=== PATIENT | male | born 1990 | race Caucasian/White ===

== ENCOUNTER 2021-01-29 12:30 | Inpatient (IN) | payer OTHER ==
[~2021-01-29] VITALS: Ht 182.9 cm; Wt 80.6 kg
[2021-01-29 14:10] LABS: HEMATOCRIT 41.1 % (42.0-52.0); MEAN CORPUSCULAR HEMOGLOBIN 31.6 pg (27.0-33.0); MEAN CORPUSCULAR HGB CONC 34.1 g/dl (32.0-36.5); MEAN CORPUSCULAR VOLUME 92.8 fl (80.0-96.0); PLATELET COUNT, AUTOMATED 182 10^3/uL (150-450); RED BLOOD COUNT 4.43 10^6/uL (4.30-6.10); WHITE BLOOD COUNT 3.9 10^3/uL (4.0-10.0)
[2021-01-29 14:28] LABS: AMPHETAMINES LEVEL URINE NEGATIVE (NEGATIVE); BARBITURATES URINE NEGATIVE (NEGATIVE); BENZODIAZEPINES URINE NEGATIVE (NEGATIVE); CANNABINOIDS URINE NEGATIVE (NEGATIVE); COCAINE METABOLITE URINE NEGATIVE (NEGATIVE); METHADONE URINE NEGATIVE (NEGATIVE); OPIATES URINE NEGATIVE (NEGATIVE); PHENCYCLIDINE URINE NEGATIVE (NEGATIVE)
[2021-01-29 14:43] LABS: ACETAMINOPHEN LEVEL < 2.0 UG/ML (10.0-30.0); ALBUMIN 3.7 GM/DL (3.2-5.2); ALT/SGPT 43 U/L (12-78); BILIRUBIN,DIRECT 0.1 MG/DL (0.0-0.2); BILIRUBIN,TOTAL 0.3 MG/DL (0.2-1.0); BLOOD UREA NITROGEN 19 MG/DL (7-18); CALCIUM LEVEL 9.1 MG/DL (8.5-10.1); CARBON DIOXIDE LEVEL 30 MEQ/L (21-32); CHLORIDE LEVEL 106 MEQ/L (98-107); CREATININE FOR GFR 1.11 MG/DL (0.70-1.30); ETHYL ALCOHOL (ETHANOL) < 0.003 % (0.000-0.010); GLOMERULAR FILTRATION RATE > 60.0 (>60); GLUCOSE, FASTING 80 MG/DL (70-100); POTASSIUM SERUM 4.4 MEQ/L (3.5-5.1); SALICYLATE LEVEL < 1.7 MG/DL (5.0-30.0); SODIUM LEVEL 139 MEQ/L (136-145); TOTAL PROTEIN 6.7 GM/DL (6.4-8.2)
--- NOTE | 2021-01-29 16:24 | MHIPNPDOC ---
[facility] Progress Note Progress Note DATE OF SERVICE: 01/29/21 Communicated to PSA patient needs admission. 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 Vital Signs Vital Signs Date Time Temp Pulse Resp B/P (MAP) Pulse Ox O2 Delivery O2 Flow Rate FiO2 01/29/21 12:30 98.7 54 18 131/66 (87) 100 Room Air Laboratory Data 24H Labs Laboratory Tests 2 01/29/21 13:48: Nucleated Red Blood Cells % (auto) 0.0, Anion Gap 3L, Glomerular Filtration Rate > 60.0, Calcium Level 9.1, Total Bilirubin 0.3, Direct Bilirubin 0.1, Aspartate Amino Transf (AST/SGOT) 25, Alanine Aminotransferase (ALT/SGPT) 43, Alkaline Phosphatase 53, Total Protein 6.7, Albumin 3.7, Albumin/Globulin Ratio 1.2, Thyroid Stimulating Hormone (TSH) 1.180, Salicylates Level < 1.7L, Urine Opiates Screen NEGATIVE, Urine Methadone Screen NEGATIVE, Acetaminophen Level < 2.0L, Urine Barbiturates Screen NEGATIVE, Urine Phencyclidine Screen NEGATIVE, Urine Amphetamines Screen NEGATIVE, Urine Benzodiazepines Screen NEGATIVE, Urine Cocaine Metabolite Screen NEGATIVE, Urine Cannabinoids Screen NEGATIVE, Ethyl Alcohol Level < 0.003 CBC/BMP Laboratory Tests 01/29/21 13:48 Allergies Coded Allergies: No Known Drug Allergies (Verified Allergy, Unknown, 01/29/21) VALERIANO ARIAS MD Jan 29, 2021 16:24
--- NOTE | 2021-01-29 19:07 | ECGEPIP ---
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
[2021-01-29] MEDS ORDERED: RA M10TA PO (21:27)
[2021-01-29] MEDS ORDERED: BANO25TA PO (21:27)
[2021-01-29] MEDS ORDERED: HOME MED LIST COMPLETE! XX SCH (21:30)
[2021-01-30 13:52] LABS: RSV AMPLIFICATION NEGATIVE (NEGATIVE)
[2021-01-30] MEDS ORDERED: ACETAMINOPHEN TAB 650MG DOSE (2X325MG) PO PRN (14:20)
[2021-01-30] MEDS ORDERED: traZODone 50 MG TAB PO PRN (14:20)
[2021-01-30] MEDS ORDERED: MOM 30ML SUSPENSION UDC PO PRN (14:20)
[2021-01-30] MEDS ORDERED: MAALOX 30 ML SUSP *UDC PO PRN (14:20)
[2021-01-30 15:39] VITALS: BP 121/72
[2021-01-31 06:41] VITALS: BP_SYST 120; BP_SYST 140; BP_DIAS 58; BP_DIAS 78
--- NOTE | 2021-01-31 12:53 | MHHPE ---
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 HISTORY OF PRESENT ILLNESS: Patient came by himself, he was directed by his brother, whom he texted that he had suicidal thoughts. Told his brother that he felt like buying a gun and shooting himself in a lonely place. Patient reports he has a long history of mental illness with considerable mood swings. His depression goes back since many years. However, it has been worsening for the last four to five months. Periodically, he has had suicidal thoughts. His mood swings have brought marital discord. His wants to go to [place], where they belong. Reports he currently feels hopeless, helpless. He has decreased sleep, poor energy. He also has racing thoughts, increased energy, goes on spending sprees, decreased need for sleep, which can last up to 3-4 days. Patient also has a history of anxiety. His current episode is mainly depression. His stressors are work related as well as relationship problems with his . PAST PSYCHIATRIC HISTORY: He has never seen a psychiatrist before, has never been on any medications. However, he was seeing a therapist two weeks ago. Patient had suicidal ideas when he was 16 or 17 years old; however, never acted on it. MEDICAL HISTORY: Denies medical problems. DRUG/ALCOHOL HISTORY: Patient currently is not using alcohol or any illicit drugs. However, in the past, before age 20, he has used opioids, cannabis, cocaine, methamphetamine. FAMILY PSYCHIATRIC HISTORY: His aunt, his cousin and probably his mother also have bipolar disorder. PERSONAL HISTORY: He was raised by his mother and father periodically from 4 years to 13 years, then he lived with his mother. He has one brother and one half-sister. He completed high school graduation. He has been in the [employer] for 4-1/2 years. He was deployed to [place]. MENTAL STATUS EXAMINATION: Thin build, average height. Appears stated age. Cooperative. Made good eye contact. Mood is depressed. Affect is blunted. Groomed well in hospital dress. Speech: Rate, rhythm and volume are good. Thought process: Linear and goal-directed. Thought content: Has had suicidal ideas, but denies any suicidal plans now. Denies any homicidal thoughts. Oriented to time, place and person. Memory: Immediate, remote and recent are good. Impulse control is adequate. VITAL SIGNS: Temperature 97.8, pulse 60, respiratory rate 18, blood pressure 120/58, pulse oximetry 97%. REVIEW OF SYSTEMS: CONSTITUTIONAL: Denies any night sweats, fever or weight loss. HEENT: Negative for epistaxis, headache, hearing loss. RESPIRATORY: No cough or shortness of breath. No wheezing. CARDIOVASCULAR: Negative for chest pain or dyspnea. GASTROINTESTINAL: No abdominal pain. No change in bowel habits. GENITOURIARY: No dysuria. No trouble voiding. No hematuria. NEUROLGOCIAL: No gait disturbances. No numbness or tingling. MUSCULOSKELETAL: No joint pain. DIAGNOSES: 1. Bipolar disorder, unspecified. 2. Rule out bipolar 2 disorder. 3. Anxiety disorder, not otherwise specified. ASSESSMENT: This is his first psychiatric hospitalization; however, has been having mood swings for a long time. He has not been treated for his symptoms. His symptoms are consistent with bipolar disorder, with depressive as well as manic symptoms. TREATMENT RECOMMENDATIONS: 1. Patient will be admitted to inpatient mental health unit (IMHU). 2. Patient will be followed by computational scientist for medical needs. 3. Patient will be followed by director of social services and case management. 4. Patient will be placed on suicide precautions, 15 minutes check. 5. Patient will participate in appropriate activities, including group, individual and milieu therapies. 6. Patient will be placed on Depakote ER 500 mg at night and Remeron 15 mg at night, titrate the dose. 7. Will check valproic acid level after five days. ESTIMATED LENGTH OF STAY: 5-6 days. TIME SPENT: 45 minutes. MTDD
--- NOTE | 2021-01-31 15:58 | HPEPDOC ---
General Date of Admission Jan 30, 2021 at 14:17 Date of Service: Jan 31, 2021 Chief Complaint The patient is a 30-year-old male admitted with a reason for visit of Unspecified Depressive Do. 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 He is being examined here for medical history and physical. He denied any complaints today. Home Medications Scheduled Diphenhydramine HCl (Banophen) 25 Mg Tablet, 37.5 MG PO QHS, (Reported) Melatonin (Melatonin) 10 Mg Tablet, 20 MG PO QHS, (Reported) Allergies Coded Allergies: No Known Drug Allergies (Verified Allergy, Unknown, 01/29/21) Past Medical History Medical History Depression Surgical History Tonsillectomy, vasectomy, oral surgery Family History Significant Family History: Other (father iwth Stomach problems) Aunt and cousin Bipolar Mother Bipolar Social History * Smoker: other (vape) Alcohol: Denies Drugs: other (Used heroin, cocaine , marijuana and amphetamine as a teenager.) A-FIB/CHADSVASC A-FIB History Current/History of A-Fib/PAF?: No Review of Systems Constitutional: Denies: Chills, Fever, Night Sweats Eyes: Denies: Pain, Vision change ENT: Denies: Head Aches, Ear Pain, Dysphagia Skin: Denies: Rash, Lesions, Breakdown Pulmonary: Denies: Dyspnea, Cough Cardiovascular: Denies: Chest Pain, Palpitations, Orthopnea, Paroxysmal Noc. Dyspnea, Lt Headedness Gastrointestinal: Denies: Nausea, Vomiting, Abdominal Pain, Diarrhea Genitourinary: Denies: Dysuria, Frequency, Incontinence, Retention Hematologic: Denies: Bruising, Bleeding Excessively Musculoskeletal: Denies: Neck Pain, Back Pain, Joint Pain, Muscle Pain, Spasms Neurological: Denies: Weakness, Numbness, Change in speech, Confusion Psych: Reports: Depression; Denies: Memory Issues Physical Examination General Exam: Positive: Alert, No Acute Distress Eye Exam: Positive: PERRLA, Conjunctiva & lids normal, EOMI; Negative: Sclera icteric ENT Exam: Positive: Atraumatic, Mucous membr. moist/pink, Pharynx Normal Neck Exam: Positive: Supple; Negative: JVD, thyromegaly Chest Exam: Positive: Clear to auscultation, Normal air movement Heart Exam: Positive: Rate Normal, Regular Rhythm, Normal S1, Normal S2; Negative: Murmurs, Rubs Telemetry: Positive: No significant arrhythmia Abdomen Exam: Positive: Normal bowel sounds, Soft; Negative: Tenderness, Hepatospenomegaly Extremity Exam: Negative: Clubbing, Cyanosis, Edema Skin Exam: Positive: Nl turgor and temperature; Negative: Breakdown, Lesion Neuro Exam: Positive: Normal Gait, Normal Speech, Cranial Nerves 3-12 NL, Reflexes 2+ Psych Exam: Positive: Oriented x 3 Vital Signs Vital Signs Date Time Temp Pulse Resp B/P (MAP) Pulse Ox O2 Delivery O2 Flow Rate FiO2 01/31/21 06:41 97.8 60 18 120/58 (78) 97 Room Air Laboratory Data Labs 24H Laboratory Tests 2 01/30/21 12:36: Coronavirus (COVID-19)(PCR) NEGATIVE, Influenza Type A (RT-PCR) NEGATIVE, Influenza Type B (RT-PCR) NEGATIVE, Respiratory Syncytial Virus (PCR) NEGATIVE Assessment/Plan 30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 He is being examined here for medical history and physical. He denied any complaints today. Depression As per psychiatry No acute medical issues at this time Plan / VTE VTE Prophylaxis Ordered?: No (Freely ambulatory) Lupe Swift MD Jan 31, 2021 12:41
[2021-01-31 16:21] VITALS: BP 121/56
[2021-01-31] MEDS: MIRTAZAPINE 15 MG TAB PO SCH (19:59)
[2021-01-31] MEDS: DIVALPROEX 500MG *ER* TAB PO SCH (19:59)
[2021-02-01 06:19] VITALS: BP 115/57
--- NOTE | 2021-02-01 09:02 | MHIPNPDOC ---
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 he felt like buying a gun and shooting himself in a lonely place. Patient reports he has a long history of mental illness with considerable mood swings. His depression goes back since many years. However, it has been worsening for the last four to five months. Periodically, he has had suicidal thoughts. His mood swings have brought marital discord. His wants to go to [place], where they belong. Reports he currently feels hopeless, helpless. He has decreased sleep, poor energy. He also has racing thoughts, increased energy, goes on spending sprees, decreased need for sleep, which can last up to 3-4 days. Patient also has a history of anxiety. His current episode is mainly depression. His stressors are work related as well as relationship problems with his . This is his first psychiatric hospitalization, never been on any psychotropic medications. Patient currently doing well, reports he slept the best in several days, denies any mood swings Denies any side effects from the medications. MENTAL STATUS EXAMINATION: Patient is a [30]-year old male, who is average height and build . Speech: Is rate rhythm and volume are good . Thought processes including: Linear goal-directed . Thought content: . Denies any suicidal thoughts or homicidal thoughts Insight: Good Orientation: X3 Recent and remote memory: Good Attention span and concentration: Good Language: Good Fund of knowledge: Good Mood: Depressed. Affect: Constricted. DIAGNOSES: 1. Bipolar disorder unspecified, rule out bipolar 2 disorder Estimated length of stay: 4 to 5 days Time spent: 25 minutes Current medications--Depakote ER 500 mg at night Remeron 15 mg at night Vital Signs Vital Signs Date Time Temp Pulse Resp B/P (MAP) Pulse Ox O2 Delivery O2 Flow Rate FiO2 02/01/21 06:19 97.6 59 14 115/57 (76) 98 Room Air Current Medications Current Medications Medications (Trade) Dose Ordered Sig/Kenneth Route PRN Reason Start Time Stop Time Status Last Admin Dose Admin Acetaminophen (Tylenol Tab) 650 mg Q6HP PRN PO HEADACHE or MILD DISCOMFORT 01/30/21 14:20 Al Hydrox/Mg Hydrox/Simethicone (Mylanta) 30 ml Q4HP PRN PO HEARTBURN/INDIGESTION 01/30/21 14:20 Divalproex Sodium (Depakote Er) 500 mg QHS PO 01/31/21 21:00 01/31/21 19:59 Home Med (Home Med List Complete!) ASDIRECTED XX 01/29/21 21:30 01/29/21 21:31 DC Magnesium Hydroxide (Milk Of Magnesia) 30 ml DAILYPRN PRN PO CONSTIPATION 01/30/21 14:20 Mirtazapine (Remeron) 15 mg QHS PO 01/31/21 21:00 01/31/21 19:59 Trazodone HCl (Desyrel) 50 mg QHSP PRN PO INSOMNIA 01/30/21 14:20 01/30/21 20:12 Allergies Coded Allergies: No Known Drug Allergies (Verified Allergy, Unknown, 01/29/21) KATIANA OLIVER MD Feb 01, 2021 09:02
[2021-02-01 19:04] VITALS: BP 136/70
[2021-02-01] MEDS: MIRTAZAPINE 15 MG TAB PO SCH (20:08)
[2021-02-01] MEDS: DIVALPROEX 500MG *ER* TAB PO SCH (20:08)
[2021-02-02 06:18] VITALS: BP 115/59
--- NOTE | 2021-02-02 13:20 | MHIPNPDOC ---
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 Per chart review was texting his brother having thoughts finding a lonely place and shooting himself with a gun. Per PSA team is safe acted in ED. patient's family has history of bipolar disorder, toxicology screen was negative on admission. Interval: Charts reviewed, spent an extended period of time with patient interviewing and assessing for psychiatric symptoms as he has a limited history of psychiatric involvement apart from [facility] outpatient, no past suicide attempts, does report hypomanic symptoms including periods where he feels he is run by an engine and cannot sleep despite working out 2 times in the same day, lack of sleep for 3 to 4 days, but never over a week. Compares himself to another roommate previously that was " much more manicky than me", states that " most the time is depression with infrequent high episodes", does report also that he has morning anxiety, ordered as needed as needed hydroxyzine for breakthrough anxiety, made aware of, rare side effects and is agreeable to plan. There is family history of bipolar including in his cousins and his mom. Patient continues to have fleeting suicidal thoughts, does report medications somewhat improving anxiety and mood. 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 Reports sleep is fair, appetite is normal. VITAL SIGNS: See below. NEW TEST RESULTS: none CURRENT MEDICATIONS: See below. MENTAL STATUS EXAMINATION: Patient is a 30-year old male, who is in no acute distress, tall, thin, fair eye contact, withdrawn. Speech: Is decreased amount, nonspontaneous, decreased Language skills are good. Thought processes including: Linear and logical. Thought content: Fleeting suicidal thoughts, denies any homicidal ideation, intent or plan.. Abstract reasoning, and computation: Good. Description of associations: Good. Description of abnormal or psychotic thoughts: Denies. Judgment: Fair Insight: Improving Orientation: X4. Recent and remote memory: Intact. Attention span and concentration: Good. Language: Bengali Fund of knowledge: Average Mood: " Depressed". Affect: Dysthymic, mood congruent, appropriate DIAGNOSES: 1. Bipolar disorder, type II, depressed episode 2. History of polysubstance abuse 3. Generalized anxiety disorder ASSESSMENT: Patient presents with a depressed episode in context of recent hypomanic behavior, agreeable to medication changes, denies acute distress, denies acute physical concerns. Agreeable to lab testing, discussed side effects of medications and several treatment strategies we can pursue to ensure stability and improvement in mood. Discussed possibly adding Abilify for mood augmentation, stabilization if continues to be depressed with Depakote and mirtazapine 15 mg nightly. MANAGEMENT PLAN: increase Depakote ER to 750 mg for breakthrough anxiety and mood stabilization, start hydroxyzine for breakthrough anxiety, ordered fasting labs including A1c and lipid panel, also ordered a Depakote level to assess if in treatment range for mood stabilization. Was discussed extensively with the treatment team to coordinate safe discharge plan once become stable. AIMs scoring equals 0 today on evaluation. TIME SPENT: 30 minutes. Vital Signs Vital Signs Date Time Temp Pulse Resp B/P (MAP) Pulse Ox O2 Delivery O2 Flow Rate FiO2 02/02/21 06:18 97.1 48 19 115/59 (77) 98 Room Air Current Medications Current Medications Medications (Trade) Dose Ordered Sig/Kenneth Route PRN Reason Start Time Stop Time Status Last Admin Dose Admin Acetaminophen (Tylenol Tab) 650 mg Q6HP PRN PO HEADACHE or MILD DISCOMFORT 01/30/21 14:20 Al Hydrox/Mg Hydrox/Simethicone (Mylanta) 30 ml Q4HP PRN PO HEARTBURN/INDIGESTION 01/30/21 14:20 02/01/21 17:21 Divalproex Sodium (Depakote Er) 500 mg QHS PO 01/31/21 21:00 02/02/21 09:43 DC 02/01/21 20:08 Divalproex Sodium (Depakote Er) 750 mg QHS PO 02/02/21 21:00 Home Med (Home Med List Complete!) ASDIRECTED XX 01/29/21 21:30 01/29/21 21:31 DC Hydroxyzine HCl (Atarax) 50 mg Q4HP PRN PO ANXIETY/AGITATION 02/02/21 09:35 Magnesium Hydroxide (Milk Of Magnesia) 30 ml DAILYPRN PRN PO CONSTIPATION 01/30/21 14:20 Mirtazapine (Remeron) 15 mg QHS PO 01/31/21 21:00 02/01/21 20:08 Trazodone HCl (Desyrel) 50 mg QHSP PRN PO INSOMNIA 01/30/21 14:20 01/30/21 20:12 Allergies Coded Allergies: No Known Drug Allergies (Verified Allergy, Unknown, 01/29/21) VALERIANO ARIAS MD Feb 02, 2021 13:20
[2021-02-02 16:31] VITALS: BP 124/58
[2021-02-02] MEDS: MIRTAZAPINE 15 MG TAB PO SCH (20:07)
[2021-02-02] MEDS ORDERED: DIVALPROEX 250MG *ER* TAB PO SCH (21:00)
[2021-02-03 05:52] VITALS: BP 148/64
[2021-02-03 07:37] LABS: CHOLESTEROL RISK RATIO 2.796 (<5)
[2021-02-03] MEDS: hydrOXYzine 50 MG TAB PO PRN (10:05)
[2021-02-03 10:29] LABS: HEMOGLOBIN A1c 5.1 %
[2021-02-03] MEDS: DIVALPROEX 500MG *ER* TAB PO SCH ×2 (10:38→20:12)
--- NOTE | 2021-02-03 14:21 | MHIPNPDOC ---
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 Per chart review was texting his brother having thoughts finding a lonely place and shooting himself with a gun. Per PSA team is safe acted in ED. patient's family has history of bipolar disorder, toxicology screen was negative on admission. Interval: Charts reviewed, patient reports some improvement in anxiety, but states he continues to have agitation especially in the morning, reports he feels much more calm in the evenings. Does report getting a full night sleep, somewhat stable energy during the day. Upon review of medications agrees to changing Depakote to 500 mg twice a day, despite the medication being long- acting extended release. Otherwise agrees to continuing mirtazapine as it has helped his sleep. Discussed how he may be having some continued hypomanic symptoms or may be having breakthrough anxiety in context of his medications wearing off. Denies acute suicidal intent at this point, but is agreeable to continued stay due to concerns for his mood and safety prior to being returned back [place] the [place]. Has no acute physical complaints or concerns. VITAL SIGNS: See below. NEW TEST RESULTS: Lipid panel and A1c within normal limits, ordered Depakote level will be drawn in 2 days. CURRENT MEDICATIONS: See below. MENTAL STATUS EXAMINATION: Patient is a 30-year old male, who is in no acute distress, tall, thin, fair eye contact, withdrawn. Speech: Is normal amount, spontaneous Language skills are good. Thought processes including: Linear and logical. Thought content: Unchanged. Fleeting suicidal thoughts, denies any homicidal ideation, intent or plan. Abstract reasoning, and computation: Good. Description of associations: Good. Description of abnormal or psychotic thoughts: Denies. Judgment: Fair Insight: Improving Orientation: X4. Recent and remote memory: Intact. Attention span and concentration: Good. Language: British Fund of knowledge: Average Mood: " A bit agitated". Affect: Anxious, irritable, dysthymic, mood congruent, appropriate DIAGNOSES: 1. Bipolar disorder, type II, mixed episode 2. History of polysubstance abuse 3. Generalized anxiety disorder ASSESSMENT: Patient continues to have mood fluctuations, agitation, i rritability, anxiety and concerns for safety if discharged at this time. Agreeable to increasing his Depakote in divided doses, aware of common and rare side effects. If symptoms do not continue to improve we have previously discussed possible augmentation with Abilify. MANAGEMENT PLAN: increase Depakote ER to 500 mg twice daily for agitation, breakthrough anxiety and mood stabilization, start hydroxyzine for breakthrough anxiety, Was discussed extensively with the treatment team to coordinate safe discharge plan once become stable. AIMs scoring equals 0 today on evaluation. TIME SPENT: 30 minutes. Vital Signs Vital Signs Date Time Temp Pulse Resp B/P (MAP) Pulse Ox O2 Delivery O2 Flow Rate FiO2 02/03/21 05:52 98.6 50 16 148/64 (92) 98 Room Air Laboratory Data 24H Labs Laboratory Tests 2 02/03/21 06:53: Estimated Mean Plasma Glucose 100, Hemoglobin A1c 5.1, Triglycerides Level 95, Total Cholesterol 179, LDL Cholesterol 96, Non-HDL Cholesterol (LDL + VLDL) 115, Total HDL Cholesterol 64, Cholesterol/HDL Ratio 2.796 Current Medications Current Medications Medications (Trade) Dose Ordered Sig/Kenneth Route PRN Reason Start Time Stop Time Status Last Admin Dose Admin Acetaminophen (Tylenol Tab) 650 mg Q6HP PRN PO HEADACHE or MILD DISCOMFORT 01/30/21 14:20 Al Hydrox/Mg Hydrox/Simethicone (Mylanta) 30 ml Q4HP PRN PO HEARTBURN/INDIGESTION 01/30/21 14:20 02/01/21 17:21 Divalproex Sodium (Depakote Er) 500 mg BID PO 02/03/21 10:30 02/03/21 10:38 Divalproex Sodium (Depakote Er) 500 mg QHS PO 01/31/21 21:00 02/02/21 09:43 DC 02/01/21 20:08 Divalproex Sodium (Depakote Er) 750 mg QHS PO 02/02/21 21:00 02/03/21 10:21 DC 02/02/21 20:07 Home Med (Home Med List Complete!) ASDIRECTED XX 01/29/21 21:30 01/29/21 21:31 DC Hydroxyzine HCl (Atarax) 50 mg Q4HP PRN PO ANXIETY/AGITATION 02/02/21 09:35 02/03/21 10:05 Magnesium Hydroxide (Milk Of Magnesia) 30 ml DAILYPRN PRN PO CONSTIPATION 01/30/21 14:20 Mirtazapine (Remeron) 15 mg QHS PO 01/31/21 21:00 02/02/21 20:07 Trazodone HCl (Desyrel) 50 mg QHSP PRN PO INSOMNIA 01/30/21 14:20 01/30/21 20:12 Allergies Coded Allergies: No Known Drug Allergies (Verified Allergy, Unknown, 01/29/21) VALERIANO ARIAS MD Feb 03, 2021 14:21
[2021-02-03 18:57] VITALS: BP 139/84
[2021-02-03] MEDS: MIRTAZAPINE 15 MG TAB PO SCH (20:12)
[2021-02-04 06:08] VITALS: BP_SYST 123; BP_SYST 135; BP_DIAS 57; BP_DIAS 61
[2021-02-04] MEDS: DIVALPROEX 500MG *ER* TAB PO SCH ×2 (08:05→20:33)
--- NOTE | 2021-02-04 15:05 | MHIPNPDOC ---
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 Per chart review was texting his brother having thoughts finding a lonely place and shooting himself with a gun. Per PSA team is safe acted in ED. patient's family has history of bipolar disorder, toxicology screen was negative on admission. Interval: Charts reviewed, patient states he continues to improve on the unit since making the medication change of Depakote twice daily, despite the medication being ER formulation. Denies any medication side effects and feels more even overall. Depakote level was moved today with possible discharge tomorrow, as he reports consistent symptomatic improvement with reduced depressive symptoms. Sleep is improved appetite is normal. VITAL SIGNS: See below. NEW TEST RESULTS: Depakote level is within normal limits of therapeutic range, 54.7 CURRENT MEDICATIONS: See below. MENTAL STATUS EXAMINATION: Patient is a 30-year old male, who is in no acute distress, tall, th in, improved eye contact, less withdrawn, her stated age, good hygiene Speech: Is normal amount, spontaneous Language skills are good. Thought processes including: Linear and logical. Thought content: Reduction in fleeting suicidal thoughts, reports less agitated during the day Abstract reasoning, and computation: Good. Description of associations: Good. Description of abnormal or psychotic thoughts: Denies. Judgment: Fair Insight: Improving Orientation: X4. Recent and remote memory: Intact. Attention span and concentration: Good. Language: Mohawk Fund of knowledge: Average Mood: " Getting better". Affect: Less anxious, less irritable, mildly dysthymic, mood congruent, appropriate DIAGNOSES: 1. Bipolar disorder, type II, mixed episode 2. History of polysubstance abuse 3. Generalized anxiety disorder ASSESSMENT: Patient seems to have improvements in the agitation which is produced denies any homicidal ideation, less fleeting suicidal ideation with improved mood. Sleep is improved appetite and energy are normal. Agrees to discharge within the next 2 days, to ensure safe discharge. MANAGEMENT PLAN: Continue Depakote ER to 500 mg twice daily for agitation, breakthrough anxiety and mood stabilization, continue hydroxyzine for breakthrough anxiety. Continue coordination with treatment team including social work for safe discharge planning back to [facility] likely tomorrow. Depakote level within normal limits 54.7. TIME SPENT: 15 minutes, including coordination of care and chart review. Vital Signs Vital Signs Date Time Temp Pulse Resp B/P (MAP) Pulse Ox O2 Delivery O2 Flow Rate FiO2 02/04/21 06:08 98.1 60 18 135/61 (85) 98 Room Air Laboratory Data 24H Labs Laboratory Tests 2 02/04/21 10:24: Valproic Acid (Depakene) Level 54.7 Current Medications Current Medications Medications (Trade) Dose Ordered Sig/Kenneth Route PRN Reason Start Time Stop Time Status Last Admin Dose Admin Acetaminophen (Tylenol Tab) 650 mg Q6HP PRN PO HEADACHE or MILD DISCOMFORT 01/30/21 14:20 Al Hydrox/Mg Hydrox/Simethicone (Mylanta) 30 ml Q4HP PRN PO HEARTBURN/INDIGESTION 01/30/21 14:20 02/01/21 17:21 Divalproex Sodium (Depakote Er) 500 mg BID PO 02/03/21 10:30 02/04/21 08:05 Divalproex Sodium (Depakote Er) 500 mg QHS PO 01/31/21 21:00 02/02/21 09:43 DC 02/01/21 20:08 Divalproex Sodium (Depakote Er) 750 mg QHS PO 02/02/21 21:00 02/03/21 10:21 DC 02/02/21 20:07 Home Med (Home Med List Complete!) ASDIRECTED XX 01/29/21 21:30 01/29/21 21:31 DC Hydroxyzine HCl (Atarax) 50 mg Q4HP PRN PO ANXIETY/AGITATION 02/02/21 09:35 02/03/21 10:05 Magnesium Hydroxide (Milk Of Magnesia) 30 ml DAILYPRN PRN PO CONSTIPATION 01/30/21 14:20 Mirtazapine (Remeron) 15 mg QHS PO 01/31/21 21:00 02/03/21 20:12 Trazodone HCl (Desyrel) 50 mg QHSP PRN PO INSOMNIA 01/30/21 14:20 01/30/21 20:12 Allergies Coded Allergies: No Known Drug Allergies (Verified Allergy, Unknown, 01/29/21) VALERIANO ARIAS MD Feb 04, 2021 15:05
[2021-02-04 16:07] VITALS: BP 124/60
[2021-02-04] MEDS: hydrOXYzine 50 MG TAB PO PRN (20:33)
[2021-02-04] MEDS: MIRTAZAPINE 15 MG TAB PO SCH (20:33)
[2021-02-05 06:37] VITALS: BP 140/63
[2021-02-05] MEDS: DIVALPROEX 500MG *ER* TAB PO SCH (08:19)
[2021-02-05] MEDS ORDERED: DEPA500T2 PO (09:27)
[2021-02-05] MEDS ORDERED: HYDR50TA70 PO (09:27)
[2021-02-05] MEDS ORDERED: MIRT-62 PO (09:27)
--- NOTE | 2021-02-05 12:48 | MHDSPDOC ---
[facility] Discharge Summary Discharge Summary DATE OF ADMISSION: Jan 30, 2021 at 14:17 DATE OF DISCHARGE: Feb 05, 2021 at 11:25 DISCHARGE DIAGNOSES: 1. Bipolar disorder, type II, mixed episode 2. History of polysubstance abuse in remission 3. 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 Per chart review was texting his brother and having thoughts finding a lonely place and shooting himself with a gun. Per PSA team is safe acted in ED. patient's family has history of bipolar disorder, toxicology screen was negative on admission. CONSULTANTS INVOLVED: See medical H&P by hospitalist TREATMENT AND PROGRESS ON THE UNIT : Patient was admitted the [facility] unit 9.39 legal status and was a for the following treatment allergies: 1. Individual therapy 2. Group therapy 3. Medication management 4. Milieu Therapy 5. Safe environment HOSPITAL COURSE: Patient was admitted to the [facility] unit 9.3 medical status. Was medically cleared in the ED before arriving to the unit. Labs were reviewed including LFTs which were within normal limits, AST of 25, ALT 43, no liver or pancreatic history. TSH was within normal limits at 1.180. Ordered fasting labs for baseline including HbA1c which was 5.1% and within normal limits, f asting blood sugar of 100 which is within normal limits, fasting lipid panel was within normal limits. Patient reported chronic pattern of mood fluctuations including hypomanic episodes primarily with irritability, lack of sleep, increased impulsivity, excessive goal-directed behavior lasting approximately 3 or so days, followed by length the depressive periods lasting weeks and suicidal thoughts in context of these periods. States when he came in was in 1 of these depressive periods and was having trouble focusing and taking the leadership role within the . 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 Was started on Depakote 750 mg same release which was titrated to 500 mg twice daily, due to continued irritability and agitation, lack of sleep. Was also started on mirtazapine 50 mg nightly after stabilized on the Depakote, due to lack of perceived benefit from other alternatives. Reports he tolerated the medications well without side effects, denied any acute physical complaints. Endorsed improvements in "stable energy level" prior to discharge, also endorsed reduced agitation and irritability, improved sleep, at least 7 or 8 hours. Was made aware of routine monitoring with education, including Depakote levels every 6 months or if making medication changes, routine LFTs, routine monitoring for any pancreatic enzyme evaluation, annual EKG, routine weights monitoring of vital signs, routine monitoring for metabolic side effects every 6 months, educated about diet and exercise and need for consistent compliance with medication. We are also able to discuss how the stress of work and anxiety may trigger his hypomanic symptoms and/or depressions, and discussed various coping strategies for reducing anxiety, educated on sleep cycle, routine and healthy lifestyle. Depakote level was ordered prior to discharge and returned to be 55.4, which is within normal range. Patient denies any acute physical symptoms which are bothersome or medication side effects. Prior discharge denied any suicidal thoughts, intent or plan. Patient felt mood had improved during stay. Collateral was obtained with aid of treatment team social work with 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 DISCHARGE ASSESSMENT: In today's interview, patient is alert and oriented, well dressed with good hygiene and grooming. Smiles laughs and has full affect with good eye contact. Denies depression and only endorses mild anxiety which is chronic. Denies suicidal and homicidal ideation, planning or intent. Denies and is not observed to have any signs of alia or hypomania including elevated mood, behavioral ind iscretion, pressured speech, flight of ideas, impulsive behavior, excessive goal-directed behavior, lack of sleep, grandiosity, illogical thoughts. Does not display any signs of psychosis including delusions, hallucinations, bizarre thinking, obsessions, paranoia, ruminations, logical thoughts, or having poor insight or judgment. Patient has normal mentation, and declines further hospitalization on a voluntary status and meets criteria for discharge today. Patient was encouraged to return to the hospital symptoms worsen or change and encouraged to call the unit if he needs to speak to provider for questions regarding medications or care. Contracts for safety and feels ready to leave. Overall calm and euthymic disposition, does laugh and smile at times. MENTAL STATUS EXAMINATION ON DISCHARGE: Patient is a 30-year old male, who is in no acute distress, tall, thin, good eye contact, engaged, appears stated age, good hygiene, short haircut, has tattoos. Speech: Is normal amount, spontaneous, normal volume Language skills are good. Thought processes including: Linear and logical. Thought content: Reduction in fleeting suicidal thoughts, reports less agitated during the day Abstract reasoning, and computation: Good. Description of associations: Good. Description of abnormal or psychotic thoughts: Denies. Judgment: Good Insight: Good, improving Orientation: X4. Recent and remote memory: Intact. Attention span and concentration: Good. Language: Slovenian Fund of knowledge: Average Mood: "Much better". Affect: Euthymic, non-irritable, full, does laugh and smile at times, mood congruent, appropriate MEDICATIONS ON DISCHARGE: See medication reconciliation CSSRS: Wish to be : No Nonspecific active suicidal thoughts: No Lifetime attempts: 0 Interrupted attempts: 0 Aborted attempts: 0 Preparatory acts or behavior: 0 Taking into consideration safety state, status, modifiable and non-modifiable risk factors patient is at low risk on discharge for suicide according to the [place] suicide evaluation. Patient is future oriented and willing to return to the and engage with whatever process he has set ahead of him. Has family and kids he looks forward to seeing. PLAN/FOLLOWUP ARRANGEMENTS: Follow Up Care Education Label * Medical * Medical Follow Up [facility] * Established With This Provider Yes * Therapist MISS ABARCA * Date Feb 12, 2021 * Time 14:40 * Address of Clinic or Practice [facility]/ [address] * Follow Up Care Education Label * Mental Health Appt 1 * Additional information 1ST [facility] Yuly GAMBOA [id number] SPEC/90 PENDING 1ST [facility] [id number] FTR/60 PENDING 1ST [facility]/[place] [id number] FTR/60 PENDING 1ST [facility]/[place] [id number] FTR/60 PENDING The amount of time spent in the coordination of care for this patient was approximately 40 minutes, including coordination of care and education for patient, safety planning ETOH/Disorder Med Rx ETOH/DRUG DISORDER RX: Offrd @ d/c & pt refused Vital Signs/I&Os Vital Signs Date Time Temp Pulse Resp B/P (MAP) Pulse Ox O2 Delivery O2 Flow Rate FiO2 02/05/21 06:37 98.2 63 20 140/63 (88) 97 Room Air Medications Scheduled Diphenhydramine HCl (Banophen) 25 Mg Tablet, 37.5 MG PO QHS, (Reported) Divalproex Sodium (Depakote ER) 500 Mg Tab.er.24h, 500 MG PO BID for bipolar II, #14 Melatonin (Melatonin) 10 Mg Tablet, 20 MG PO QHS, (Reported) Mirtazapine (Remeron) 15 Mg Tablet, 15 MG PO QHS for sleep and mood, #7 Scheduled PRN Hydroxyzine HCl (Hydroxyzine HCl) 50 Mg Tablet, 50 MG PO Q4HP PRN for ANXIETY/AGITATION, #7 Allergies Coded Allergies: No Known Drug Allergies (Verified Allergy, Unknown, 01/29/21) VALERIANO ARIAS MD Feb 05, 2021 12:48
== END 2021-02-05 11:25 | disposition home or self-care (01) | DRG 881 ==
LOC: M ED 12:30 → M ED INP 01-30 14:17 → M PSY 01-30 15:02
PROVIDERS: ADMIT Student in an Organized Health Care Education/Training Program; ATTEND Student in an Organized Health Care Education/Training Program
DX: F32.9 Major depressive disorder, single episode, unspecified (principal); R45.851 Suicidal ideations; F41.1 Generalized anxiety disorder; Z91.82 Personal history of military deployment; Z79.899 Other long term (current) drug therapy; F17.290 Nicotine dependence, other tobacco product, uncomplicated; Z90.49 Acquired absence of other specified parts of digestive tract; Z20.822 Contact with and (suspected) exposure to COVID-19; F19.11 Other psychoactive substance abuse, in remission

== ENCOUNTER → 2021-09-03 | Outpatient (REF) ==
[~2021-09-03] MED LIST: BANO25TA PO; DEPA500T2 PO; HYDR50TA70 PO; MIRT-62 PO; RA M10TA PO
== END ==
LOC: M PLAIMG 09:18
PROVIDERS: ATTEND Internal Medicine
DX: R06.02 Shortness of breath (principal)

== ENCOUNTER → 2021-10-21 | Outpatient (REF) | payer OTHER | LOC: M CARPUL 09-18 07:58 → EDSTATUS 10:30 → M CARPUL 10:32 | PROVIDERS: ATTEND Internal Medicine | DX: M94.0 Chondrocostal junction syndrome [Tietze] (principal) ==